=== PATIENT | female | born 1985 | race Caucasian/White ===

== ENCOUNTER 2020-10-12 11:57 | Emergency (ER) | payer OTHER ==
[~2020-10-12 11:57] MED LIST: COUMADIN5 MG PO
[2020-10-12 12:59] LABS: EOSINOPHIL 8.2 % (0-5); HCT 38.2 % (37.0-47.0); HGB 12.5 g/dl (12.5-16.0); LYMPHOCYTE 35.8 % (15-48); MCH 27.7 pg (25.0-31.0); MCHC 32.7 g/dL (32.0-36.0); MCV 84.5 fL (78.0-100.0); MONOCYTE 6.7 % (0-12); MPV 10.7 fL (6.0-9.5); NEUTROPHIL 48.2 % (41-80); NRBC 0; PLT 244 K/uL (150-400); RBC 4.52 M/uL (4.20-5.40); RDW 13.4 % (11.5-14.0); WBC 6.7 K/uL (4.0-10.5)
[2020-10-12 13:09] LABS: INR 1.65 (0.9-1.2); PROTHROMBIN TIME 18.5 SECONDS (11.4-13.6)
[2020-10-12 13:10] LABS: D-DIMER 0.29 ug/mLFEU (0.00-0.41); PTT 67.4 SECONDS (22.2-34.7)
[2020-10-12 13:47] LABS: ALBUMIN 3.6 g/dL (3.4-5.0); BILIRUBIN - TOTAL 0.4 mg/dL (0.2-1.0); CREATININE 0.79 mg/dL (0.51-0.95); GLOBULIN (CALCULATION) 3.7 g/dL; POTASSIUM 3.8 mmol/L (3.5-5.1); TOTAL PROTEIN 7.3 g/dL (6.4-8.2)
== END 2020-10-12 14:25 | disposition home or self-care (01) ==
LOC: FER 11:57
PROVIDERS: Emergency Medicine
DX: R07.89 Other chest pain (principal); R79.1 Abnormal coagulation profile; R06.02 Shortness of breath; R53.83 Other fatigue; J45.909 Unspecified asthma, uncomplicated; Z86.711 Personal history of pulmonary embolism; Z88.0 Allergy status to penicillin
CPT/HCPCS: 36415; 71045; 80053; 84484; 85025; 85379; 85610; 85730; 93005